=== PATIENT | male | born 1985 | race Caucasian/White ===

== ENCOUNTER 2021-02-03 18:04 | Emergency (ER) | payer OTHER ==
[~2021-02-03 18:04] MED LIST: AUGMENTIN 875-1 EACH PO; PROTONIX 40 MG40 M1 PO; SUBOXONE PO; ZYRTEC10 MG PO
[2021-02-03 18:57] LABS: HEMOGLOBIN 14.2 gm/dl (14.0-17.5); RED BLOOD COUNT 4.73 M/UL (4.20-5.50); WHITE BLOOD COUNT 14.7 K/UL (4.5-11.0)
[2021-02-03 19:25] LABS: BUN/CREATININE RATIO 11 (0-10)
[2021-02-03] MEDS ORDERED: IBUPROFEN800 MG PO (21:27)
[2021-02-03] MEDS ORDERED: VIBRAMYCIN100 MG PO (21:27)
== END 2021-02-03 22:30 | disposition home or self-care (01) ==
LOC: ER1 18:04
PROVIDERS: Preventive Medicine Occupational Medicine
DX: K51.30 Ulcerative (chronic) rectosigmoiditis without complications (principal)
CPT/HCPCS: 72100; 72131; 80053; 80307; 81001; 85025; 86850; 86900; 86901; 96374; 96375; 99284; C9113; J0696; Q9967